=== PATIENT | female | born 1950 | race African-American/Black ===

== ENCOUNTER 2018-08-08 10:27 | Emergency (ER) | payer BC ==
[2018-08-08 10:33] VITALS: BP 127/76; PULSE 105; TEMP 97; BMI 24.5
--- NOTE | 2018-08-08 10:46 | PDOC ---
History of Present Illness - General Chief Complaint: Nausea/Vomiting Stated Complaint: VOMITTING Time Seen by Provider: 08/08/18 10:40 History Source: Patient Exam Limitations: No Limitations - History of Present Illness Initial Comments: 67 yo F w a pmh of chronic constipation, GERD, colitis and diverticulitis presents to the ER with a significant amount of nausea and vomiting. She states she was seen at [facility] last week on Thursday, diagnosed with diverticulitis and sent home on Cipro and flagyl. She was also sent home with Zofran. She states that she has been extremely nauseous taking the cipro and she is not able to take the antibiotic because she keeps vomiting. She ran out of her zofran after two days and now every time she attempts to take the antibiotic she vomits. She denies any pain or recent fevers. She denies any chest pain, SOB, difficulty breathing, dysuria, frequency, urgency, back pain, headache, neck pain, blurry vision. PCP: Jory Meyer PSH: Appendectomy as child Social Hx: Denies smoking, drinking, or other substance usage. Allergies: Aspirin Past History - Past Medical History Allergies/Adverse Reactions: Allergies Allergy/AdvReac Type Severity Reaction Status Date / Time aspirin Allergy Verified 08/08/18 10:33 Home Medications: Ambulatory Orders Metoclopramide HCl [Reglan] 10 mg PO PRN PRN 7 Days #14 tablet 08/08/18 Anemia: No Asthma: No Cancer: No Cardiac Disorders: No CVA: No COPD: No CHF: No DVT: No Dementia: No Diabetes: No Dialysis: No GI Disorders: Yes (ACID REFLUX, diverticulosis) Disorders: No HTN: No Hypercholesterolemia: No Kidney Stones: No Liver Disease: No Psychiatric Problems: No Seizures: No Thyroid Disease: No Lung CA: No - Surgical History Abdominal Surgery: Yes (LAP X 2 TO OPEN TUBES FOR ) Appendectomy: Yes Cardiac Surgery: No Cholecystectomy: No Gastric Stapling: No GI Surgery: No Lung Surgery: No Neurologic Surgery: No Orthopedic Surgery: No - Immunization History Td Vaccination: Yes Immunization Up to Date: Yes - Suicide/Smoking/Psychosocial Hx Smoking Status: No Smoking History: Never smoked Have you smoked in the past 12 months: No Number of Cigarettes Smoked Daily: 0 Hx Alcohol Use: No Drug/Substance Use Hx: No Substance Use Type: None Review of Systems - Review of Systems Able to Perform ROS?: Yes Comments:: CONSTITUTIONAL: Absent: fever, no chills, no fatigue EYES: Absent: visual changes ENT: Absent: ear pain, no sore throat CARDIOVASCULAR: Absent: chest pain, no palpitations RESPIRATORY: Absent: cough, no SOB GI: Present: Nausea, vomiting, constipation, diarrhea, abdominal pain. GENITOURINARY: Absent: dysuria, no frequency, no hematuria MUSKULOSKELETAL: Absent: back pain, no arthralgia, no myalgia SKIN: Absent: rash NEURO: Absent: headache *Physical Exam - Vital Signs Last Vital Signs Temp Pulse Resp BP Pulse Ox 97 F L 105 H 18 127/76 98 08/08/18 10:30 08/08/18 10:30 08/08/18 10:30 08/08/18 10:30 08/08/18 10:30 - Physical Exam Comments: GENERAL: Well-appearing, well-nourished. No apparent distress. HEENT: Normocephalic, atraumatic. PERRL, EOM intact. CARDIOVASCULAR: Normal S1, S2. Tachycardic rate and regular rhythm. PULMONARY: Clear to auscultation bilaterally. ABDOMEN: Soft, non-distended, non-tender. EXTREMITIES: Normal ROM in all four extremities. No gross deformities. SKIN: Warm, dry. No rash NEUROLOGICAL: No focal neurological deficits. Moderate Sedation - Procedure Monitoring Vital Signs: Procedure Monitoring Vital Signs Temperature 97 F L 08/08/18 10:30 Pulse Rate 105 H 08/08/18 10:30 Respiratory Rate 18 08/08/18 10:30 Blood Pressure 127/76 08/08/18 10:30 O2 Sat by Pulse Oximetry (%) 98 08/08/18 10:30 ED Treatment Course - LABORATORY CBC & Chemistry Diagram: 08/08/18 11:46 08/08/18 11:46 Medical Decision Making - Medical Decision Making 67 yo F w a pmh of chronic constipation, GERD, colitis and diverticulitis presents to the ER with a significant amount of nausea and vomiting. She states she was seen at [facility] last week on Thursday, diagnosed with diverticulitis and sent home on Cipro and flagyl. She was also sent home with Zofran. She states that she has been extremely nauseous taking the cipro and she is not able to take the antibiotic because she keeps vomiting. DDx IBNLT: Colitis, diverticulitis, gastroenteritis, C-diff, medication side effect Plan: Cbc, Cmp, Lipase, IV hydration, anti nausea medication, EKG, re-assess. Labs unremarkable and WNL. 4 mg of zofran did not seem to help the patient. Trial of reglan was successful. Patient was able to take her meds and drink PO fluids after reglan. -Well appearing patient, no complaints, requests discharge. - Will send reglan to pharmacy and DC w PCP fu. *DC/Admit/Observation/Transfer Diagnosis at time of Disposition: Nausea & vomiting - Discharge Dispostion Disposition: HOME Condition at time of disposition: Improved Decision to Admit order: No - Prescriptions Prescriptions: Metoclopramide HCl [Reglan] 10 mg PO PRN PRN 7 Days #14 tablet PRN Reason: Nausea And/Or Vomiting - Referrals Referrals: Jacqui Meyer [Non Staff, Medical] - - Patient Instructions Printed Discharge Instructions: DI for Vomiting -- Adult, DI for Nausea -- Adult Additional Instructions: You came into the ER with nausea and vomiting. We gave you a medication called reglan which seemed to help. We are sending this medication to your pharmacy. Please make sure to go and pick it up. Come back to the ER if you can't eat or drink, if you experience severe abdominal pain, get a fever, or have any other new or worsening concerns. Thank you for coming to the [facility] ER. We hope you feel better soon! Print Language: KOREAN - Post Discharge Activity
[2018-08-08] MEDS ORDERED: SODIUM CHLORIDE 0.9% 500 ML INFUS.BAG IV ONE (10:47)
[2018-08-08] MEDS ORDERED: ONDANSETRON 4 MG/2 ML VIAL IVPUSH ONE (10:48)
[2018-08-08 11:59] LABS: BASO % 0.5 % (0-2.0); EOS % 0.6 % (0-4.5); HEMATOCRIT 43.5 % (32.4-45.2); HEMOGLOBIN 14.9 GM/dL (10.7-15.3); LYMPH % 16.4 % (8-40); MCH 30.6 pg (25.7-33.7); MCHC 34.3 g/dl (32.0-36.0); MEAN CELL VOLUME 89.3 fl (80-96); MEAN PLT VOLUME 8.4 fl (7.5-11.1); MONO % 8.7 % (3.8-10.2); NEUT % 73.8 % (42.8-82.8); PLATELET COUNT 266 K/MM3 (134-434); RBC 4.88 M/mm3 (3.60-5.2); RDW 13.1 % (11.6-15.6); WHITE BLOOD COUNT 8.9 K/mm3 (4.0-10.0)
[2018-08-08] MEDS ORDERED: ONDANSETRON 4 MG/2 ML VIAL ONE (12:05)
[2018-08-08 12:33] LABS: ALBUMIN 3.6 g/dl (3.4-5.0); ALK PHOS 64 U/L (45-117); ANION GAP 10 MMOL/L (8-16); BILIRUBIN,TOTAL 0.5 mg/dL (0.2-1); BLOOD UREA NITROGEN 16 mg/dL (7-18); CALCIUM 9.9 mg/dL (8.5-10.1); CHLORIDE 101 mmol/L (98-107); CO2 26 mmol/L (21-32); CREATININE 0.8 mg/dL (0.55-1.3); GLUCOSE,RANDOM 89 mg/dL (74-106); POTASSIUM 3.8 mmol/L (3.5-5.1); SGOT/AST 23 U/L (15-37); SGPT/ALT 26 U/L (13-61); SODIUM 138 mmol/L (136-145); TOT PROT 7.5 g/dl (6.4-8.2)
--- NOTE | 2018-08-08 12:52 | PDOC ---
Attending Attestation - HPI HPI: 08/08/18 12:54 The patient is a 67 year old female, with a significant past medical history of chronic constipation, GERD, colitis and diverticulitis, who presents to the emergency department with, nausea and vomiting. As per patient, she was recently diagnosed with diverticulitis on Thursday at which time she was prescribed Cipro, Flagyl, and Zofran. Patient notes every time she has taken her antibiotics she immediately becomes nauseous and vomits. She endorses she ran out of her Zofran after 2 days. She denies recent fevers, chills, headache or dizziness. She denies recent diarrhea or constipation. She denies recent dysuria, frequency, urgency or hematuria. She denies recent chest pain or shortness of breath. Allergies: Aspirin. Past surgical history: Appendectomy. Social history: Nonsmoker. Denies EtOH use and recreational drug use. Primary Care Physician: Dr. Jory Meyer <Rosibel Schmidt - Last Filed: 08/08/18 12:54> - Resident Resident Name: Manny Donovan - ED Attending Attestation I have performed the following: I have examined & evaluated the patient, The case was reviewed & discussed with the resident, I agree w/resident's findings & plan, Exceptions are as noted - Physicial Exam PE: GENERAL: Awake, alert, and fully oriented, in no acute distress HEAD: No signs of trauma EYES: PERRLA, EOMI, sclera anicteric, conjunctiva clear ENT: Auricles normal inspection, hearing grossly normal, nares patent, oropharynx clear without exudates. Dry mucosa NECK: Normal ROM, supple, no lymphadenopathy, JVD, or masses LUNGS: Breath sounds equal, clear to auscultation bilaterally. No wheezes, and no crackles HEART: Regular rate and rhythm, normal S1 and S2, no murmurs, rubs or gallops ABDOMEN: Soft, nontender, normoactive bowel sounds. No guarding, no rebound. No masses EXTREMITIES: Normal range of motion, no edema. No clubbing or cyanosis. No cords, erythema, or tenderness NEUROLOGICAL: Cranial nerves II through XII grossly intact. Normal speech, normal gait. Motor and sensation intact SKIN: Warm, Dry, normal turgor, no rashes or lesions noted. - Medical Decision Making Pt with vomiting associated with her antibiotics for diverticulitis. She was taking zofran at home, states that it was helping, but she still felt nauseous all the time. She ran out of zofran, and has started vomiting after taking cipro. Given IV zofran and fluids in ED, still persistently nauseous. After that we gave reglan instead with a better effect. Will give oral dose of cipro and monitor for effect. If she is able to tolerate, will DC home with rx for reglan. <Jazzy Arnett - Last Filed: 08/08/18 14:37> Attestations - Attestations 08/08/18 12:54 Documentation prepared by Rosibel Schmidt, acting as medical technicians for Jazzy Arnett MD. <Rosibel Schmidt - Last Filed: 08/08/18 12:54>
[2018-08-08] MEDS ORDERED: METOCLOPRAMIDE HCL INJECTION 10 MG/2 ML VIAL IVPUSH ONE (13:15)
[2018-08-08] MEDS ORDERED: METOCLOPRAMIDE HCL INJECTION 10 MG/2 ML VIAL ONE (13:47)
--- NOTE | 2018-08-08 22:27 | EKG ---
Test Reason : Blood Pressure : / mmHG Vent. Rate : 085 BPM Atrial Rate : 085 BPM P-R Int : 136 ms QRS Dur : 076 ms QT Int : 342 ms P-R-T Axes : 046 045 048 degrees QTc Int : 406 ms NORMAL SINUS RHYTHM NORMAL ECG WHEN COMPARED WITH ECG OF 15-JUN-2010 19:31, NO SIGNIFICANT CHANGE WAS FOUND Confirmed by MARIE LANDRUM MD ([id number]) on 08/08/2018 10:27:21 PM Referred By: Confirmed By:MARIE LANDRUM MD
== END 2018-08-08 15:31 | disposition home or self-care (01) ==
LOC: JER 10:27
PROC: 3E033GC Introduction of Other Therapeutic Substance into Peripheral Vein, Percutaneous Approach (ICD-10-PCS; principal; 2018-08-08)
PROC: 3E033GC Introduction of Other Therapeutic Substance into Peripheral Vein, Percutaneous Approach (ICD-10-PCS; 2018-08-08)
DX: R11.2 Nausea with vomiting, unspecified (principal); Z87.19 Personal history of other diseases of the digestive system
CPT/HCPCS: 36415; 80053; 83690; 85025; 93005; 93010; 99281-25

== ENCOUNTER 2020-08-16 17:22 | Emergency (ER) | payer BC ==
[2020-08-16 17:33] VITALS: BMI 22.6
[2020-08-16] MEDS ORDERED: ACETAMINOPHEN 1000 MG/100 ML VIAL (NON FORMULARY) IVPB ONE (18:08)
[2020-08-16] MEDS ORDERED: LACTATED RINGERS SOLUTION 1000 ML INFUS.BAG IV ONE (18:08)
[2020-08-16] MEDS ORDERED: ONDANSETRON 4 MG/2 ML VIAL IVPUSH ONE (18:25)
[2020-08-16] MEDS ORDERED: FAMOTIDINE 20 MG/50 ML IVPB 20 MG/50 ML MG IVPB ONE ×2 (18:25→19:51)
[2020-08-16] MEDS ORDERED: ONDANSETRON 4 MG/2 ML VIAL ONE (19:50)
[2020-08-16 21:03] LABS: URINE APPEARANCE CLEAR; URINE BILIRUBIN NEGATIVE (NEGATIVE); URINE COLOR YELLOW; URINE GLUCOSE (UA) NEGATIVE (NEGATIVE); URINE KETONE NEGATIVE (NEGATIVE); URINE LEUK ESTERASE NEGATIVE (NEGATIVE); URINE NITRITE NEGATIVE (NEGATIVE); URINE PROTEIN NEGATIVE (NEGATIVE); URINE UROBILINOGEN 0.2 mg/dL (0.2-1.0)
[2020-08-16 21:04] LABS: BASO % 0.4 % (0-2.0); EOS % 0.3 % (0-4.5); HEMATOCRIT 39.1 % (32.4-45.2); HEMOGLOBIN 13.1 GM/dL (10.7-15.3); LYMPH % 14.6 % (8-40); MCH 30.5 pg (25.7-33.7); MCHC 33.4 g/dl (32.0-36.0); MEAN CELL VOLUME 91.5 fl (80-96); MEAN PLT VOLUME 9.5 fl (7.5-11.1); MONO % 8.4 % (3.8-10.2); NEUT % 76.3 % (42.8-82.8); PLATELET COUNT 227 K/MM3 (134-434); RBC 4.28 M/mm3 (3.60-5.2); RDW 13.2 % (11.6-15.6); WHITE BLOOD COUNT 12.4 K/mm3 (4.0-10.0)
[2020-08-16 21:10] LABS: INR 1.12 (0.83-1.09); PROTHROMBIN TIME (PATIENT) 13.5 SEC (9.7-13.0)
[2020-08-16 21:12] LABS: ACTIVATED PTT 30.6 SECONDS (25.2-36.5)
[2020-08-16 21:21] LABS: POTASSIUM 3.7 mmol/L (3.5-5.1)
[2020-08-16 21:25] LABS: ALBUMIN 3.7 g/dl (3.4-5.0); BLOOD UREA NITROGEN 8.9 mg/dL (7-18); CALCIUM 9.9 mg/dL (8.5-10.1); MAGNESIUM 2.1 mg/dL (1.8-2.4)
[2020-08-16 21:28] LABS: CREATININE 0.8 mg/dL (0.55-1.3)
[2020-08-16 21:30] LABS: TOT PROT 7.4 g/dl (6.4-8.2)
[2020-08-16 21:59] VITALS: TEMP 98.9
[2020-08-17 00:07] VITALS: BP 125/82; PULSE 88
== END 2020-08-16 23:57 | disposition home or self-care (01) ==
LOC: JER 17:22
PROC: 3E033GC Introduction of Other Therapeutic Substance into Peripheral Vein, Percutaneous Approach (ICD-10-PCS; principal; 2020-08-16)
PROC: 3E033GC Introduction of Other Therapeutic Substance into Peripheral Vein, Percutaneous Approach (ICD-10-PCS; 2020-08-16)
DX: K56.41 Fecal impaction (principal)
CPT/HCPCS: 36415; 74177-TC; 80053; 81003; 83605; 83690; 83735; 85025; 85610; 85730; 87086; 93005; 93010; 99285-25; C9803; U0003

== ENCOUNTER 2024-05-25 15:56 | Emergency (ER) | payer OTHER, BC ==
[2024-05-25 16:09] VITALS: BP 116/78; PULSE 74; RESP 16; TEMP 98.6; BMI 21.4
[2024-05-25] MEDS ORDERED: ACETAMINOPHEN INJECTION 100 ML ONE (17:58)
[2024-05-25] MEDS ORDERED: MAG HYDROX/AL HYDROX/SIMETH 30 ML UNIT-DOSE CUP ONE (17:59)
[2024-05-25] MEDS ORDERED: FAMOTIDINE 20 MG/50 ML IVPB 20 MG/50 ML MG IVPB ONE (17:59)
[2024-05-25] MEDS: FAMOTIDINE 20 MG/50 ML IVPB 20 MG/50 ML MG IVPB ONE (18:20)
[2024-05-25] MEDS: MAG HYDROX/AL HYDROX/SIMETH 30 ML UNIT-DOSE CUP PO ONE (18:20)
[2024-05-25] MEDS: ACETAMINOPHEN 1000 MG/100 ML BAG IVPB ONE (18:20)
[2024-05-25 18:22] LABS: BASO % 0.4 % (0-2.0); EOS % 1.5 % (0-4.5); HEMOGLOBIN 13.1 GM/dL (10.7-15.3); LYMPH % 25.5 % (8-40); MCH 30.3 pg (25.7-33.7); MCHC 33.6 g/dl (32.0-36.0); MEAN CELL VOLUME 90.2 fl (80-96); MEAN PLT VOLUME 8.8 fl (7.5-11.1); MONO % 9.3 % (3.8-10.2); NEUT % 63.3 % (42.8-82.8); PLATELET COUNT 277 10^3/uL (134-434); RBC 4.32 M/mm3 (3.60-5.2); RDW 13.1 % (11.6-15.6); WHITE BLOOD COUNT 9.9 K/mm3 (4.0-10.0)
[2024-05-25 18:23] LABS: PH,URINE 7.5 (5.0-8.0); URINE APPEARANCE CLOUDY; URINE BILIRUBIN NEGATIVE (NEGATIVE); URINE COLOR DK YELLOW; URINE GLUCOSE (UA) NEGATIVE (NEGATIVE); URINE KETONE NEGATIVE (NEGATIVE); URINE LEUK ESTERASE NEGATIVE (NEGATIVE); URINE NITRITE NEGATIVE (NEGATIVE); URINE PROTEIN NEGATIVE (NEGATIVE); URINE UROBILINOGEN 0.2 mg/dL (0.2-1.0)
[2024-05-25 18:29] LABS: POTASSIUM 5.1 mmol/L (3.5-5.1)
[2024-05-25 18:31] LABS: ALBUMIN 3.8 g/dl (3.4-5.0); BLOOD UREA NITROGEN 12.7 mg/dL (7-18); CALCIUM 10.5 mg/dL (8.5-10.1)
[2024-05-25 18:34] LABS: CREATININE 0.8 mg/dL (0.55-1.3)
[2024-05-25 18:38] LABS: BILIRUBIN,TOTAL 0.8 mg/dL (0.2-1); TOT PROT 7.9 g/dl (6.4-8.2)
[2024-05-25] MEDS ORDERED: LIDOCAINE 4% PATCH TP ONE (19:39)
[2024-05-25] MEDS ORDERED: METHOCARBAMOL 500 MG TABLET ONE (19:39)
[2024-05-25] MEDS: METHOCARBAMOL 500 MG TABLET PO ONE (19:54)
[2024-05-25] MEDS: LIDOCAINE 4% PATCH TP ONE (19:54)
== END 2024-05-25 23:37 | disposition home or self-care (01) ==
LOC: JER 15:56
PROC: 3E033GC Introduction of Other Therapeutic Substance into Peripheral Vein, Percutaneous Approach (ICD-10-PCS; principal; 2024-05-25)
PROC: 3E033NZ Introduction of Analgesics, Hypnotics, Sedatives into Peripheral Vein, Percutaneous Approach (ICD-10-PCS; 2024-05-25)
DX: N13.2 Hydronephrosis with renal and ureteral calculous obstruction (principal); R10.11 Right upper quadrant pain; R10.13 Epigastric pain; R07.9 Chest pain, unspecified; R00.2 Palpitations
CPT/HCPCS: 36415; 71046-TC-FY; 74176-TC; 76705-TC; 80053; 81003; 83605; 83690; 84443; 84484; 85025; 87086; 93005; 93010; 99285-25; J0131